=== PATIENT | male | born 1990 | race Caucasian/White ===

== ENCOUNTER 2019-08-12 11:07 | Emergency (ER) | payer BC, OTHER ==
[2019-08-12] MEDS ORDERED: Lidocaine 1% 10 ML MDV INJECT ONE (11:08)
[2019-08-12] MEDS ORDERED: Diphtheria,Pertussis(Acell),Tetanus Vaccine 0.5 ML Syringe IM ONE (11:08)
[2019-08-12] MEDS ORDERED: Bacitracin Oint 1 GM U/D Packet TOP ONE (11:08)
[2019-08-12] MEDS ORDERED: Octyl 2-Cyanoacrylate 1 Tube TOP ONE (11:16)
--- NOTE | 2019-08-12 11:20 | EDM.PDOC ---
ED HPI GENERAL MEDICAL PROBLEM - General Chief Complaint: Laceration Stated Complaint: CUT FINGER Time Seen by Provider: 08/12/19 11:08 Source of Information: Reports: Patient History Limitations: Reports: No Limitations - History of Present Illness INITIAL COMMENTS - FREE TEXT/NARRATIVE: HISTORY AND PHYSICAL: History of present illness: Patient is a 29-year-old male who is to the emergency room with complaints of a laceration to his second and third digit. He was using a knife to cut some tubing on his truck when it slipped resulting in the laceration. Unsure of last tetanus update. Denies any other extremity involvement. Offers no systemic complaints. Review of systems: As per history of present illness and below otherwise all systems reviewed and negative. Past medical history: As per history of present illness and as reviewed below otherwise noncontributory. Surgical history: As per history of present illness and as reviewed below otherwise noncontributory. Social history: See social history for further information Family history: As per history of present illness and as reviewed below otherwise noncontributory. Physical exam: General: Well-developed and well-nourished 29-year-old male. Alert and oriented. Nontoxic-appearing and in no acute distress. HEENT: Atraumatic, normocephalic, pupils equal and reactive bilaterally, negative for conjunctival pallor or scleral icterus, mucous membranes moist, trachea midline. No drooling or trismus noted. No meningeal signs. No hot potato voice noted. Lungs: Clear to auscultation, breath sounds equal bilaterally Heart: S1S2, regular rate and rhythm without overt murmur Skin: 1.5 C-shaped laceration to the distal tip of the left index finger, does not go through the nailbed. Superficial 1.5 cm laceration to the mid third digit on left hand. Otherwise remaining skin is intact, warm, dry. No lesions or rashes noted. Extremities: Good flexion and extension of digits. Denies any numbness or tingling of distal digits. He moves all extremities per self without difficulty or deficits, cap refill less than 3 seconds. Neurovascular unremarkable. Neuro: Awake, alert, oriented. Cranial nerves II through XII unremarkable. Cerebellum unremarkable. Motor and sensory unremarkable throughout. Exam nonfocal. Notes: Patient declines wanting/needing any imaging at this time. 1% lidocaine was used to anesthetize the area. Chlorhexidine and wound wash to thoroughly cleanse the lacerated site. Usual and customary procedures were followed for suture placement.4-0 nylon, #5 interrupted sutures placed to left index finger. Patient requesting Dermabond for superficial laceration of the third digit. Bulky tube gauze dressing applied with bacitracin on index finger. Supportive care measures were reviewed and discussed. Voices understanding and is agreeable to plan of care. Denies any further questions or concerns at this time. Diagnostics: None Therapeutics: Tetanus, lidocaine, bacitracin nonstick dressing Prescription: None Impression: Laceration Plan: 1. Keep the area clean and dry. Continue to monitor for signs of infection. Sutures to be removed in 7-10 days. 2. Tylenol and/or ibuprofen as needed for pain management. 3. Please follow-up with your primary care provider in the next 1-2 days. Return to the ED as needed and as discussed. Definitive disposition and diagnosis as appropriate pending reevaluation and review of above. - Related Data Allergies Allergy/AdvReac Type Severity Reaction Status Date / Time No Known Allergies Allergy Verified 08/12/19 11:18 Home Meds: Home Meds . [No Known Home Meds] 08/18/13 [History] ED ROS GENERAL - Review of Systems Review Of Systems: Comprehensive ROS is negative, except as noted in HPI. ED EXAM, SKIN/RASH Exam: See Below (See dictation) ED SKIN PROCEDURES - Laceration/Wound Repair Left index finger Appearance: Subcutaneous, Clean Distal NVT: Neuro & Vascular Intact, No Tendon Injury Anesthetic Type: Local Local Anesthesia - Lidocaine (Xylocaine): 1% Plain Local Anesthetic Volume: 3cc Skin Prep: Chlorhexidine (Hibiciens), Saline, Sterile Drape Saline Irrigation (cc's): 50 Exploration/Debridement/Repair: Wound Explored, In a Bloodless Field, Explored to Base, No Foreign Material Found Closed with: Sutures Lac/Wound length In cm: 1.5 Suture Size: 4-0 # of Sutures: 5 Suture Type: Nylon, Interrupted, Simple Drain Placement: No Sterile Dressing Applied: Provider Tetanus Status Addressed: Yes Complications: No Left 3rd digit Appearance: Superficial, Linear, Clean Distal NVT: Neuro & Vascular Intact, No Tendon Injury Skin Prep: Chlorhexidine (Hibiciens), Saline Saline Irrigation (cc's): 50 Exploration/Debridement/Repair: Wound Explored, In a Bloodless Field, Explored to Base, No Foreign Material Found Closed with: Dermabond Lac/Wound length In cm: 1.5 Drain Placement: No Sterile Dressing Applied: Provider Tetanus Status Addressed: Yes Complications: No Course - Vital Signs Last Recorded V/S: Last Vital Signs Temp 97.3 F 08/12/19 11:18 Pulse 78 08/12/19 11:18 Resp 17 08/12/19 11:18 BP 118/73 08/12/19 11:18 Pulse Ox 98 08/12/19 11:18 - Orders/Labs/Meds Orders: Active Orders 24 hr Category Date Time Status Vaccines to be Administered [RC] PER UNIT ROUTINE Care 08/12/19 11:08 Ordered Meds: Medications Discontinued Medications Generic Name Dose Route Start Last Admin Trade Name Freq PRN Reason Stop Dose Admin Bacitracin 2 dose 08/12/19 11:08 08/12/19 11:15 Bacitracin Oint 1 Gm TOP 08/12/19 11:09 2 dose ONETIME ONE Administration Diphtheria/Tetanus/Acell Pertussis 0.5 ml 08/12/19 11:08 08/12/19 11:16 Adacel IM 08/12/19 11:09 0.5 ml .ONCE ONE Administration Lidocaine HCl 10 ml 08/12/19 11:08 08/12/19 11:16 Xylocaine 1% INJECT 08/12/19 11:09 10 ml ONETIME ONE Administration Lidocaine HCl Confirm 08/12/19 11:12 08/12/19 11:16 Xylocaine-Mpf 1% Administered 08/12/19 11:13 Not Given Dose 5 ml .ROUTE .STK-MED ONE Octyl Cyanoacrylate 1 applic 08/12/19 11:16 08/12/19 11:21 Dermabond Advance TOP 08/12/19 11:17 1 applic ONETIME ONE Administration Departure - Departure Time of Disposition: 11:41 Disposition: Home, Self-Care 01 Clinical Impression: Laceration - Discharge Information Instructions: Laceration Care, Adult, [id number] Referrals: PCP,None [Primary Care Provider] - Forms: ED Department Discharge Additional Instructions: The following information is given to patients seen in the emergency department who are being discharged to home. This information is to outline your options for follow-up care. We provide all patients seen in our emergency department with a follow-up referral. The need for follow-up, as well as the timing and circumstances, are variable depending upon the specifics of your emergency department visit. If you don't have a primary care physician on staff, we will provide you with a referral. We always advise you to contact your personal physician following an emergency department visit to inform them of the circumstance of the visit and for follow-up with them and/or the need for any referrals to a consulting specialist. The emergency department will also refer you to a specialist when appropriate. This referral assures that you have the opportunity for follow-up care with a specialist. All of these measure are taken in an effort to provide you with optimal care, which includes your follow-up. Under all circumstances we always encourage you to contact your private physician who remains a resource for coordinating your care. When calling for follow-up care, please make the office aware that this follow-up is from your recent emergency room visit. If for any reason you are refused follow-up, please contact the [facility] Emergency Department at and asked to speak to the emergency department charge nurse. [facility] [address] [place], [place] [id number] [facility] [address] [place] [id number] 1. Keep the area clean and dry. Continue to monitor for signs of infection. Sutures to be removed in 7-10 days. 2. Tylenol and/or ibuprofen as needed for pain management. 3. Please follow-up with your primary care provider in the next 1-2 days. Return to the ED as needed and as discussed. Sepsis Event Note - Focused Exam Vital Signs: Vital Signs Temp Pulse Resp BP Pulse Ox 08/12/19 11:18 97.3 F 78 17 118/73 98 Date Exam was Performed: 08/12/19 Time Exam was Performed: 11:36 - My Orders Last 24 Hours: My Active Orders 08/12/19 11:08 Vaccines to be Administered [RC] PER UNIT ROUTINE - Assessment/Plan Last 24 Hours: My Active Orders 08/12/19 11:08 Vaccines to be Administered [RC] PER UNIT ROUTINE
== END 2019-08-12 11:50 | disposition home or self-care (01) ==
LOC: MW.ED 11:07
DX: S61.211A Laceration without foreign body of left index finger without damage to nail, initial encounter (principal); S61.213A Laceration without foreign body of left middle finger without damage to nail, initial encounter; Z23 Encounter for immunization; W26.8XXA Contact with other sharp object(s), not elsewhere classified, initial encounter
CPT/HCPCS: 12002; 90471; 90715; 99282; A9270; J2001; 12001

== ENCOUNTER 2019-08-20 17:41 | Emergency (ER) | payer OTHER | END 2019-08-20 18:05 | disposition left against medical advice (07) | LOC: MW.ED 17:41 | DX: S61.211D Laceration without foreign body of left index finger without damage to nail, subsequent encounter (principal); X58.XXXD Exposure to other specified factors, subsequent encounter | CPT/HCPCS: 99281 ==